=== PATIENT | female | born 1980 | race Caucasian/White ===

== ENCOUNTER 2018-07-03 06:18 | Emergency (ER) | payer SELFPAY ==
--- NOTE | 2018-07-03 06:46 | EDM.PDOC ---
ED HPI GENERAL MEDICAL PROBLEM - General Chief Complaint: Skin Complaint Stated Complaint: Small hard lump to right end of scar Time Seen by Provider: 07/03/18 06:35 Source of Information: Reports: Patient, RN, RN Notes Reviewed History Limitations: Reports: No Limitations - History of Present Illness INITIAL COMMENTS - FREE TEXT/NARRATIVE: Patient presents to the ED at [facility] with concerns of a lump under the skin adjacent to her scar. She noticed the scar earlier today and "wants it checked out." Patient had a last March. - Related Data Allergies Allergy/AdvReac Type Severity Reaction Status Date / Time No Known Allergies Allergy Verified 07/03/18 06:37 Home Meds: Home Meds . [No Known Home Meds] 07/03/18 [History] ED ROS GENERAL - Review of Systems Review Of Systems: See Below Constitutional: Denies: Fever, Chills, Weakness Respiratory: Denies: Shortness of Breath, Cough Cardiovascular: Denies: Chest Pain, Palpitations GI/Abdominal: Denies: Abdominal Pain, Nausea, Vomiting Skin: Reports: Lumps Neurological: Reports: No Symptoms ED EXAM, SKIN/RASH Exam: See Below Exam Limited By: No Limitations General Appearance: Alert, No Apparent Distress Respiratory/Chest: No Respiratory Distress, Lungs Clear, Normal Breath Sounds Cardiovascular: Normal Peripheral Pulses, Regular Rate, Rhythm Peripheral Pulses: 2+: Radial (L), Radial (R) GI/Abdominal: Normal Bowel Sounds, Soft, Non-Tender Neurological: Alert, Oriented Skin: Warm, Dry, Intact, Normal Color, Wound/Incision (small pea sized lump under skin along scar; non-mobile; no evidence of infection; non- tender) Course - Vital Signs Last Recorded V/S: Last Vital Signs Temp 36.2 C 07/03/18 06:20 Pulse 98 07/03/18 06:20 Resp 16 07/03/18 06:20 BP 117/81 07/03/18 06:20 Pulse Ox Departure - Departure Time of Disposition: 06:46 Disposition: Home, Self-Care 01 Condition: Good Clinical Impression: Skin lumps - Discharge Information *PRESCRIPTION DRUG MONITORING PROGRAM REVIEWED*: Not Applicable *COPY OF PRESCRIPTION DRUG MONITORING REPORT IN PATIENT ADELINE: Not Applicable Referrals: Nelson Starr MD [Primary Care Provider] - Additional Instructions: 1. Recommend follow up with PCP for any further testing and exam - Problem List Review Problem List Initiated/Reviewed/Updated: Yes - Assessment/Plan Assessment:: Skin Lump Plan: Discussed exam findings with patient. No acute emergency to warrant any testing given assessment findings. Recommend patient see her PCP for any further concerns.
== END 2018-07-03 07:02 | disposition home or self-care (01) ==
LOC: VM.ED 06:18
DX: R22.2 Localized swelling, mass and lump, trunk (principal)
CPT/HCPCS: 99282

== ENCOUNTER 2019-11-27 23:44 | Emergency (ER) | payer MEDICAID ==
--- NOTE | 2019-11-28 00:01 | EDM.PDOC ---
ED HPI GENERAL MEDICAL PROBLEM - General Stated Complaint: Drainage from nipple piercing Time Seen by Provider: 11/28/19 00:01 Source of Information: Reports: Patient - History of Present Illness INITIAL COMMENTS - FREE TEXT/NARRATIVE: Lizzie is a 39 y/o female who comes to the ER tonight with complaints of pain in her left breast and also green pus noted when she squeezed her left nipple. The pus came from an old piercing she had 17 years ago. Has not worn jewelry for years. No fevers. Symptoms just started today. 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: - Past Surgical History Female Surgical History: Reports: Section Other Female Surgeries/Procedures: C section x3 Review of Systems - Review of Systems Review Of Systems: See Below Constitutional: Denies: Chills, Fever Eyes: Reports: No Symptoms Ears: Reports: No Symptoms Nose: Reports: No Symptoms Mouth/Throat: Reports: No Symptoms Respiratory: Reports: No Symptoms Cardiovascular: Reports: No Symptoms GI/Abdominal: Reports: No Symptoms Genitourinary: Reports: No Symptoms Musculoskeletal: Reports: No Symptoms Skin: Reports: No Symptoms, Other (green pus from left nipple, left breast tender) Neurological: Reports: No Symptoms Psychiatric: Reports: No Symptoms ED EXAM, GENERAL - Physical Exam Exam: See Below General Appearance: Alert, WD/WN, No Apparent Distress (Adult female) Ears: Hearing Grossly Normal Nose: Normal Inspection Throat/Mouth: Normal Teeth, Normal Voice Head: Atraumatic, Normocephalic Neck: Normal Inspection Respiratory/Chest: No Respiratory Distress Cardiovascular: Regular Rate, Rhythm GI/Abdominal: Soft, Non-Tender (Female) Exam: Deferred Rectal (Female) Exam: Deferred Back Exam: Other (Deferred) Extremities: Normal Inspection Neurological: Alert, Oriented, CN II-XII Intact Psychiatric: Normal Affect Skin Exam: Warm, Dry, Intact, Normal Color, Other (Note mild tenderness to left breast around nipple region, left nipple slightly swollen.) Course - Vital Signs Text/Narrative:: The patient was seen by the [employer] OPERATOR. Will treat her with oral Clindamycin. She was given discharge instructions and sent home in stable condition. Departure - Departure Time of Disposition: 00:04 Disposition: Home, Self-Care 01 Condition: Good Clinical Impression: Acute mastitis of left breast - Discharge Information *PRESCRIPTION DRUG MONITORING PROGRAM REVIEWED*: Not Applicable *COPY OF PRESCRIPTION DRUG MONITORING REPORT IN PATIENT ADELINE: Not Applicable Prescriptions: Clindamycin HCl 300 mg PO TID 10 Days #30 capsule Instructions: Mastitis, [id number] Additional Instructions: -Clindamycin 300mg oral 3xdaily for 10 days -Ibuprofen/APAP for pain as needed -Hot packs as needed -Follow up with your PCP if further concerns or return to the ER
[2019-11-28] MEDS ORDERED: Take Home: Clindamycin HCl 150 MG Cap, 6 Cap Pack PO ONE (00:05)
== END 2019-11-28 00:17 | disposition home or self-care (01) ==
LOC: VM.ED 23:44
DX: N61.0 Mastitis without abscess (principal)
CPT/HCPCS: 99283; A9270-GY